=== PATIENT | female | born 1950 ===

== ENCOUNTER 2019-10-02 07:00 | Day surgery (SDC) | payer MEDICARE, OTHER ==
[~2019-10-02] VITALS: Ht 147.3 cm; Wt 61.7 kg
[~2019-10-02 07:00] MED LIST: ACETAMINOPHEN500 MG PO; ASCORBIC ACID500 MG PO; CITRACAL-VIT D1 EAC2 PO; DIOVAN HCT 80-1 EACH PO; DOCUSATE SODIU1 EACH PO; FERROUS SU220 MG/5 M PO; KEPPRA500 MG PO; METAMUCIL PACK3.4 GM PO; MINOCYCLINE HCL50 MG PO; OMEPRAZOLE20 MG PO
[2019-10-02] MEDS ORDERED: DOXYCYCLINE HY100 MG PO (07:36)
--- NOTE | 2019-10-02 08:41 | NUR ---
rail up caregiver rina sitting at bedside. after versed ra sat 96% hr 71 resp 18.
--- NOTE | 2019-10-02 10:44 | NUR ---
10/02/19 1044 [place] 1039 PATIENT ARRIVES TO PACU UNRESPONSIVE TO PAIN, ORAL AIRWAY IN PLACE. RESP EVEN AND UNLABORED, MASK AT 6 LITERS.
== END 2019-10-02 14:20 | disposition home or self-care (01) ==
LOC: DS 07:00 → OPS 07:00
PROVIDERS: Dentist General Practice
PROC: 0CRXXJ0 Replacement of Lower Tooth, Single, with Synthetic Substitute, External Approach (ICD-10-PCS; 2019-10-02)
PROC: 0CCXXZ1 Extirpation of Matter from Lower Tooth, Multiple, External Approach (ICD-10-PCS; 2019-10-02)
PROC: 0CCWXZ1 Extirpation of Matter from Upper Tooth, Multiple, External Approach (ICD-10-PCS; 2019-10-02)
PROC: 0CDXXZ1 Extraction of Lower Tooth, Multiple, External Approach (ICD-10-PCS; principal; 2019-10-02 08:45)
DX: K02.9 Dental caries, unspecified (principal); K04.7 Periapical abscess without sinus; K08.89 Other specified disorders of teeth and supporting structures; F32.9 Major depressive disorder, single episode, unspecified; K21.9 Gastro-esophageal reflux disease without esophagitis; I10 Essential (primary) hypertension; F79 Unspecified intellectual disabilities; R32 Unspecified urinary incontinence; Z88.8 Allergy status to other drugs, medicaments and biological substances; Z79.899 Other long term (current) drug therapy
CPT/HCPCS: 00170; J0690; J1100; J2250; J2370; J2405; J2704; J3010